=== PATIENT | female | born 1985 | race Caucasian/White ===

== ENCOUNTER 2018-04-08 19:40 | Outpatient (CLI) | payer OTHER ==
[~2018-04-08] VITALS: Ht 167.6 cm; Wt 95.5 kg
[2018-04-08 19:53] VITALS: BP 129/59
[2018-04-08 20:00] LABS: MICROSCOPIC NOT IND
== END 2018-04-08 20:31 | disposition home or self-care (01) ==
LOC: LDOP 19:40
PROVIDERS: ATTEND Obstetrics & Gynecology
DX: O26.893 Other specified pregnancy related conditions, third trimester (principal); H53.8 Other visual disturbances; Z3A.34 34 weeks gestation of pregnancy
CPT/HCPCS: 59025; 81003; 87086; 99211; G0463

== ENCOUNTER 2018-05-28 21:19 | Observation (INO) | payer OTHER ==
[~2018-05-28] VITALS: Ht 167.6 cm; Wt 84.2 kg
[~2018-05-28 21:19] MED LIST: CEPH-368 PO; HYDR1TAB12 PO; IBUP-1222 PO
[2018-05-28] MEDS ORDERED: MORPHINE SULFATE 4 MG/ML, 1ML ONE (22:14)
[2018-05-28] MEDS ORDERED: ONDANSETRON 2MG/ML, 2ML ONE (22:14)
[2018-05-28] MEDS ORDERED: ONDANSETRON 2MG/ML, 2ML IVPush ONE (22:30)
[2018-05-28] MEDS ORDERED: SODIUM CHLORIDE FLUSH 10ML SYR IVF ONE (22:30)
[2018-05-28] MEDS ORDERED: MORPHINE SULFATE 4 MG/ML, 1ML IVPush PRN (22:30)
[2018-05-28 22:39] LABS: BASOPHILS # (AUTO) 0.04 x10^3/uL (0-0.1); BASOPHILS % (AUTO) 0 % (0-1); EOSINOPHILS # (AUTO) 0.41 x10^3/uL (0-0.4); EOSINOPHILS % (AUTO) 3 % (1-7); LYMPHOCYTES # (AUTO) 1.79 x10^3/uL (1-3.4); LYMPHOCYTES % (AUTO) 13 % (22-44); MD NO; MEAN CORPUSCULAR HGB CONC 33.1 g/dL (32.4-35.8); MEAN CORPUSCULAR VOLUME 87.8 fL (80-100); MEAN PLATELET VOLUME 6.8 fL (7.4-10.4); MONOCYTES # (AUTO) 0.81 x10^3/uL (0.2-0.8); MONOCYTES % (AUTO) 6 % (2-9); NEUTROPHILS # (AUTO) 11.34 x10^3/uL (1.8-6.8); NEUTROPHILS % (AUTO) 79 % (42-75); PLATELET COUNT 410 x10^3/uL (130-400); RED BLOOD COUNT 4.04 x10^6/uL (3.82-5.3)
[2018-05-28 22:47] LABS: ALANINE AMINOTRANSFERASE 28 U/L (12-78); ALBUMIN 3.1 g/dL (3.4-5.0); ANION GAP 7 mmol/L (5-15); CALCIUM 8.7 mg/dL (8.5-10.1); CHLORIDE 107 mmol/L (98-107); CREATININE 0.68 mg/dL (0.55-1.02)
[2018-05-28 22:49] LABS: ALKALINE PHOSPHATASE 116 U/L (45-117); BILIRUBIN,TOTAL 0.2 mg/dL (0.2-1.0)
[2018-05-28] MEDS ORDERED: CLINDAMYCIN PMX 900MG/50ML 50 ML IV ONE (23:30)
[2018-05-28] MEDS ORDERED: CLINDAMYCIN PMX 900MG/50ML 50 ML ONE (23:45)
[2018-05-29 00:11] VITALS: BP 124/74
[2018-05-29] MEDS ORDERED: ONDANSETRON 2MG/ML, 2ML IVPush PRN (01:30)
[2018-05-29] MEDS ORDERED: MORPHINE SULFATE 4 MG/ML, 1ML IV PRN (01:30)
[2018-05-29] MEDS ORDERED: D5%-0.45NACL+KCL 20MEQ 1,000 ML IV SCH (01:30)
[2018-05-29] MEDS: MORPHINE SULFATE 4 MG/ML, 1ML IVPush PRN ×8 (01:52→16:17)
[2018-05-29 07:07] VITALS: BP 116/72
[2018-05-29] MEDS: CLINDAMYCIN PMX 900MG/50ML 50 ML IV SCH ×2 (08:14→16:17)
[2018-05-29] MEDS ORDERED: ACETAMINOPHEN 500 MG TABLET PO PRN (09:00)
[2018-05-29] MEDS ORDERED: FENTANYL PF 100 MCG/2ML ONE ×3 (11:19→12:53)
[2018-05-29] MEDS ORDERED: MIDAZOLAM 1 MG/ML, 2ML ONE ×2 (11:36→12:53)
[2018-05-29] MEDS ORDERED: MIDAZOLAM 1 MG/ML, 2ML IV PRN (12:00)
[2018-05-29] MEDS ORDERED: ACETAMINOPHEN 325 MG TABLET PO PRN (12:00)
[2018-05-29] MEDS ORDERED: ONDANSETRON ODT 8 MG PO PRN (12:00)
[2018-05-29] MEDS ORDERED: EPHEDRINE 50 MG/ML, 1ML IVPush PRN (12:00)
[2018-05-29] MEDS ORDERED: MEPERIDINE/PF 25MG/0.5ML IVPush PRN (12:00)
[2018-05-29] MEDS ORDERED: DIPHENHYDRAMINE 50 MG/ML, 1ML IVPush PRN (12:00)
[2018-05-29] MEDS ORDERED: EPHEDRINE 50 MG/ML, 1ML IM PRN (12:00)
[2018-05-29] MEDS ORDERED: PROMETHAZINE 25 MG/ML, 1ML IV PRN (12:00)
[2018-05-29] MEDS ORDERED: PROMETHAZINE 25 MG SUPP PR PRN (12:00)
[2018-05-29] MEDS ORDERED: PROPOFOL 10 MG/ML, 20ML ONE (12:06)
[2018-05-29] MEDS ORDERED: DEXAMETHASONE 4 MG/ML, 1ML ONE (12:06)
[2018-05-29] MEDS ORDERED: ONDANSETRON 2MG/ML, 2ML ONE (12:06)
[2018-05-29] MEDS ORDERED: morphine SULFATE 10 MG/ML, 1ML ONE (12:12)
[2018-05-29] MEDS ORDERED: OXYcodone 5 MG/5 ML ORAL.SOL UDC ONE (12:13)
[2018-05-29] MEDS ORDERED: HYDROcodone/APAP 7.5-325MG/15ML UDC ONE (12:16)
[2018-05-29] MEDS: FENTANYL PF 100 MCG/2ML IV PRN ×3 (12:19→12:55)
[2018-05-29] MEDS ORDERED: DIPHENHYDRAMINE 50 MG/ML, 1ML ONE (12:45)
[2018-05-29] MEDS ORDERED: HYDROcodone/APAP 7.5-325MG/15ML UDC PO PRN (13:00)
[2018-05-29 13:25] VITALS: BP 106/55
[2018-05-29] MEDS ORDERED: LACTATED RINGERS 1,000 ML IV SCH (14:30)
[2018-05-29] MEDS ORDERED: HYDROcodone/APAP 5/325 TABLET PO PRN (14:30)
[2018-05-29] MEDS ORDERED: IBUPROFEN 600 MG TABLET PO SCH (16:00)
== END 2018-05-29 16:39 | disposition home or self-care (01) ==
LOC: ED 23:54 → EDIP 23:55 → INTOOBSV 23:55 → 3NW 05-29 00:05
PROVIDERS: ADMIT Surgery; ATTEND Surgery
DX: N61.1 Abscess of the breast and nipple (principal); N63.10 Unspecified lump in the right breast, unspecified quadrant; B95.61 Methicillin susceptible Staphylococcus aureus infection as the cause of diseases classified elsewhere; L02.213 Cutaneous abscess of chest wall; D72.829 Elevated white blood cell count, unspecified
CPT/HCPCS: 19020; 36415; 76642; 80053; 83605; 85025; 87040; 87070; 87075; 87077; 87205; 96365; 96366; 96375; 96376; 99285; G0378; J1100; J1200; J2250; J2405; J2704; J3010; J3480; 87186

== ENCOUNTER 2020-04-29 09:01 | Outpatient (CLI) | payer OTHER ==
[~2020-04-29] VITALS: Ht 167.6 cm; Wt 105.5 kg
[~2020-04-29 09:01] MED LIST changes: -HYDR1TAB12 PO; +HYDR1TAB13 PO
[2020-04-29 09:16] VITALS: BP 121/72
[2020-04-29] MEDS ORDERED: TERBUTALINE 1 MG/ML, 1ML ONE (09:19)
[2020-04-29] MEDS ORDERED: TERBUTALINE 1 MG/ML, 1ML SQ ONE (09:30)
== END 2020-04-29 11:15 | disposition home or self-care (01) ==
LOC: LDOP 09:01
PROVIDERS: ATTEND Obstetrics & Gynecology
DX: O26.893 Other specified pregnancy related conditions, third trimester (principal); O24.419 Gestational diabetes mellitus in pregnancy, unspecified control; Z3A.37 37 weeks gestation of pregnancy
CPT/HCPCS: 59025; 59412; 76818; 82962; 96372; 99201; J3105; G0463

== ENCOUNTER 2020-04-30 20:06 | Outpatient (CLI) | payer OTHER ==
[~2020-04-30] VITALS: Ht 167.6 cm; Wt 114.0 kg
[2020-04-30 20:21] VITALS: BP 133/60
[2020-04-30 20:42] LABS: MICROSCOPIC NOT IND
[2020-05-01] MEDS ORDERED: PREN1TAB60 PO (10:45)
== END 2020-04-30 21:10 | disposition home or self-care (01) ==
LOC: LDOP 20:06
PROVIDERS: ATTEND Obstetrics & Gynecology
DX: O36.8130 Decreased fetal movements, third trimester, not applicable or unspecified (principal); R10.9 Unspecified abdominal pain; Z3A.40 40 weeks gestation of pregnancy
CPT/HCPCS: 59025; 81003; 87086; 99211; G0463

== ENCOUNTER 2020-05-01 10:34 | Inpatient (IN) | payer OTHER ==
[~2020-05-01] VITALS: Ht 167.6 cm; Wt 105.5 kg
[2020-05-01] MEDS ORDERED: LACTATED RINGERS 1,000 ML IV SCH (10:42)
[2020-05-01] MEDS ORDERED: PREN1TAB60 PO (10:45)
[2020-05-01 11:16] LABS: BASOPHILS # (AUTO) 0.03 x10^3/uL (0-0.1); BASOPHILS % (AUTO) 0 % (0-1); EOSINOPHILS # (AUTO) 0.17 x10^3/uL (0-0.4); EOSINOPHILS % (AUTO) 2 % (1-7); LYMPHOCYTES # (AUTO) 1.98 x10^3/uL (1-3.4); LYMPHOCYTES % (AUTO) 24 % (22-44); MD NO; MEAN CORPUSCULAR HEMOGLOBIN 29.2 pg (27.0-34.8); MEAN CORPUSCULAR HGB CONC 32.4 g/dL (32.4-35.8); MEAN CORPUSCULAR VOLUME 90.3 fL (80-100); MEAN PLATELET VOLUME 7.3 fL (7.4-10.4); MONOCYTES # (AUTO) 0.59 x10^3/uL (0.2-0.8); MONOCYTES % (AUTO) 7 % (2-9); NEUTROPHILS # (AUTO) 5.44 x10^3/uL (1.8-6.8); NEUTROPHILS % (AUTO) 66 % (42-75); PLATELET COUNT 284 x10^3/uL (130-400); RED BLOOD COUNT 4.13 x10^6/uL (3.82-5.3); RED CELL DISTRIBUTION WIDTH 15.2 % (9.6-15.2)
[2020-05-01] MEDS ORDERED: LACTATED RINGERS 1,000 ML IVBOLUS ONE (12:00)
[2020-05-01] MEDS ORDERED: METOCLOPRAMIDE 5 MG/ML, 2ML IV ONE (12:00)
[2020-05-01] MEDS ORDERED: SODIUM CITRATE/CITRIC ACID 30 ML UDC PO ONE (12:00)
[2020-05-01] MEDS ORDERED: METOCLOPRAMIDE 5 MG/ML, 2ML ONE (12:44)
[2020-05-01] MEDS ORDERED: SODIUM CITRATE/CITRIC ACID 30 ML UDC ONE (12:44)
[2020-05-01] MEDS ORDERED: NEWBORN KIT ONE (12:45)
[2020-05-01] MEDS ORDERED: OXYTOCIN 30U/ 0.9% NaCL 500ML 500 ML ONE (12:45)
[2020-05-01] MEDS ORDERED: FENTANYL PF 100 MCG/2ML ONE (16:24)
[2020-05-01] MEDS ORDERED: CEFAZOLIN 1,000 MG ONE ×2 (16:26)
[2020-05-01] MEDS ORDERED: KETOROLAC 30 MG/1 ML ONE (16:26)
[2020-05-01] MEDS ORDERED: OXYTOCIN 10 UNITS/ML, 1ML ONE ×4 (16:26)
[2020-05-01] MEDS ORDERED: EPHEDRINE 50 MG/ML, 1ML ONE (17:11)
[2020-05-01] MEDS ORDERED: PHENYLEPHRINE 10 MG/ML ONE (17:48)
[2020-05-01] MEDS ORDERED: ONDANSETRON 2MG/ML, 2ML ONE (17:48)
[2020-05-01] MEDS ORDERED: EPHEDRINE 50 MG/ML, 1ML IVPush PRN (18:30)
[2020-05-01] MEDS ORDERED: HYDROcodone/APAP 7.5-325MG/15ML UDC PO PRN (18:30)
[2020-05-01] MEDS ORDERED: FENTANYL PF 100 MCG/2ML IV PRN (18:30)
[2020-05-01] MEDS ORDERED: LABETALOL 5MG/ML, 20ML IV PRN (18:30)
[2020-05-01] MEDS ORDERED: morphine SULFATE 10 MG/ML, 1ML IVPush PRN (18:30)
[2020-05-01] MEDS ORDERED: PROMETHAZINE 25 MG/ML, 1ML IVPush PRN (18:30)
[2020-05-01] MEDS ORDERED: ONDANSETRON 2MG/ML, 2ML IVPush PRN (18:30)
[2020-05-01] MEDS ORDERED: DIPHENHYDRAMINE 50 MG/ML, 1ML IVPush PRN (18:30)
[2020-05-01] MEDS ORDERED: EPHEDRINE 50 MG/ML, 1ML IM PRN (18:30)
[2020-05-01] MEDS: LACTATED RINGERS 1,000 ML IV SCH ×2 (18:35→18:48)
[2020-05-01] MEDS: OXYTOCIN 30U/ 0.9% NaCL 500ML 500 ML IV SCH (18:48)
[2020-05-01] MEDS ORDERED: IBUPROFEN 600 MG TABLET PO PRN (19:00)
[2020-05-01] MEDS ORDERED: MEPERIDINE/PF 50 MG/ML IM PRN (19:00)
[2020-05-01] MEDS ORDERED: MISOPROSTOL 200 MCG TABLET PR PRN (19:00)
[2020-05-01] MEDS ORDERED: HYDROcodone/APAP 5/325 TABLET PO PRN (19:00)
[2020-05-01] MEDS ORDERED: ACETAMINOPHEN 325 MG TABLET PO PRN (19:00)
[2020-05-01] MEDS ORDERED: ONDANSETRON 2MG/ML, 2ML IV PRN (19:00)
[2020-05-01] MEDS ORDERED: METHYLERGONOVINE 0.2 MG/ML IM PRN (19:00)
[2020-05-01] MEDS ORDERED: MEPERIDINE/PF 100 MG/ML ONE (19:12)
[2020-05-01] MEDS ORDERED: MEPERIDINE 50 MG TABLET PO PRN (19:20)
[2020-05-01] MEDS ORDERED: HYDROcodone/APAP 7.5-325MG/15ML UDC ONE (19:49)
[2020-05-01 20:30] VITALS: BP 119/75
[2020-05-01] MEDS: HYDROcodone/APAP 5/325 TABLET PO PRN (22:21)
[2020-05-02] MEDS: KETOROLAC 30 MG/1 ML IV SCH ×4 (00:56→18:01)
[2020-05-02 01:10] VITALS: BP 127/80
[2020-05-02] MEDS: LACTATED RINGERS 1,000 ML IV SCH ×4 (02:35→14:35)
[2020-05-02] MEDS: HYDROcodone/APAP 5/325 TABLET PO PRN ×5 (02:36→20:36)
[2020-05-02] MEDS: OXYTOCIN 30U/ 0.9% NaCL 500ML 500 ML IV SCH ×2 (04:35→14:35)
[2020-05-02 04:57] LABS: BASOPHILS # (AUTO) 0.02 x10^3/uL (0-0.1); BASOPHILS % (AUTO) 0 % (0-1); EOSINOPHILS % (AUTO) 1 % (1-7); LYMPHOCYTES # (AUTO) 1.47 x10^3/uL (1-3.4); LYMPHOCYTES % (AUTO) 20 % (22-44); MD NO; MEAN CORPUSCULAR HEMOGLOBIN 29.6 pg (27.0-34.8); MEAN CORPUSCULAR VOLUME 89.8 fL (80-100); MEAN PLATELET VOLUME 7.1 fL (7.4-10.4); MONOCYTES # (AUTO) 0.43 x10^3/uL (0.2-0.8); MONOCYTES % (AUTO) 6 % (2-9); NEUTROPHILS % (AUTO) 72 % (42-75); PLATELET COUNT 218 x10^3/uL (130-400); RED BLOOD COUNT 3.42 x10^6/uL (3.82-5.3); RED CELL DISTRIBUTION WIDTH 15.3 % (9.6-15.2)
[2020-05-02 06:10] VITALS: BP 112/76
[2020-05-02] MEDS: DOCUSATE 100 MG CAPSULE PO PRN ×2 (07:35→20:32)
[2020-05-02] MEDS: PRENATAL VIT/IRON/FA 1 EACH TABLET PO SCH (07:35)
[2020-05-02 08:00] VITALS: BP 117/77
[2020-05-02] MEDS: SERTRALINE 50MG TABLET PO SCH (09:22)
[2020-05-02 12:00] VITALS: BP 106/66
[2020-05-02] MEDS: SIMETHICONE 80 MG CHEW TAB PO PRN ×2 (12:58→20:32)
[2020-05-02 16:27] VITALS: BP 122/66
[2020-05-02 20:00] VITALS: BP 115/72
[2020-05-03] MEDS: KETOROLAC 30 MG/1 ML IV SCH ×2 (00:42→06:09)
[2020-05-03] MEDS: HYDROcodone/APAP 5/325 TABLET PO PRN ×3 (00:43→09:40)
[2020-05-03 07:50] VITALS: BP 95/61
[2020-05-03] MEDS: PRENATAL VIT/IRON/FA 1 EACH TABLET PO SCH (07:56)
[2020-05-03] MEDS: DOCUSATE 100 MG CAPSULE PO PRN (07:57)
[2020-05-03] MEDS: SERTRALINE 50MG TABLET PO SCH (07:57)
[2020-05-03] MEDS ORDERED: HYDR-3240 PO (08:54)
[2020-05-03] MEDS ORDERED: IBUP-1222 PO (08:54)
[2020-05-03] MEDS ORDERED: DOCU-131 PO (08:54)
[2020-05-03] MEDS ORDERED: SERT25TA3 PO (08:55)
== END 2020-05-03 11:30 | disposition home or self-care (01) | DRG 787 ==
LOC: LDOP 10:34 → LDIP 11:57 → 2NW 20:22
PROVIDERS: ADMIT Obstetrics & Gynecology; ATTEND Obstetrics & Gynecology
PROC: 10D00Z1 Extraction of Products of Conception, Low, Open Approach (ICD-10-PCS; principal; 2020-05-01)
DX: O32.1XX0 Maternal care for breech presentation, not applicable or unspecified (principal); O99.354 Diseases of the nervous system complicating childbirth; O41.03X0 Oligohydramnios, third trimester, not applicable or unspecified; O36.8130 Decreased fetal movements, third trimester, not applicable or unspecified; O24.420 Gestational diabetes mellitus in childbirth, diet controlled; O99.214 Obesity complicating childbirth; E66.01 Morbid (severe) obesity due to excess calories; F53.0 Postpartum depression; Z88.6 Allergy status to analgesic agent; Z37.0 Single live birth; Z3A.37 37 weeks gestation of pregnancy
CPT/HCPCS: 36415; 76819; 82803; 82962; 85025; 86592; 86850; 86900; G0378; J0690; J1885; J2405; J3010; J2370; J2590; J2765; J7120; U0001-CS